=== PATIENT | male | born 1935 | race Caucasian/White ===

== ENCOUNTER → 2021-09-09 | Outpatient (CLI) | payer MEDICARE ==
[~2021-09-09] MED LIST: Aspir 8181 MG PO; CEPH500 PO; ESOM20 PO; HYDACE5 PO; LISI20 PO; RXCEPH500 PO; RXHYDACE PO; TERB250; WARF4 PO
== END | disposition home or self-care (01) ==
LOC: LAB SHORT 19:06
DX: Z08 Encounter for follow-up examination after completed treatment for malignant neoplasm (principal); L08.9 Local infection of the skin and subcutaneous tissue, unspecified; D18.01 Hemangioma of skin and subcutaneous tissue; L81.4 Other melanin hyperpigmentation; L82.1 Other seborrheic keratosis; L57.8 Other skin changes due to chronic exposure to nonionizing radiation; Z85.828 Personal history of other malignant neoplasm of skin; R60.0 Localized edema
CPT/HCPCS: 87070; 87205

== ENCOUNTER → 2022-07-20 | Outpatient (CLI) | payer MEDICARE | END | disposition home or self-care (01) | LOC: LAB SHORT 13:17 | DX: L08.9 Local infection of the skin and subcutaneous tissue, unspecified (principal) | CPT/HCPCS: 87070; 87077; 87186; 87205 ==

== ENCOUNTER 2022-10-17 10:49 | Emergency (ER) | payer MEDICARE ==
[~2022-10-17] VITALS: Ht 198.1 cm; Wt 104.3 kg
[2022-10-17] MEDS ORDERED: CEPH500 PO (13:41)
[2022-10-17] MEDS ORDERED: HYDR1TAB94 PO (13:41)
== END 2022-10-17 13:49 | disposition home or self-care (01) ==
LOC: ER 10:49
DX: S61.213A Laceration without foreign body of left middle finger without damage to nail, initial encounter (principal); W18.30XA Fall on same level, unspecified, initial encounter; I10 Essential (primary) hypertension; Z79.899 Other long term (current) drug therapy; Z79.82 Long term (current) use of aspirin; Z87.891 Personal history of nicotine dependence
CPT/HCPCS: 73140; 90714

== ENCOUNTER → 2022-11-09 | Outpatient (CLI) | payer MEDICARE ==
[~2022-11-09] MED LIST changes: +HYDR1TAB94 PO
== END | disposition home or self-care (01) ==
LOC: LAB SHORT 10:10
DX: L08.9 Local infection of the skin and subcutaneous tissue, unspecified (principal)
CPT/HCPCS: 87070; 87077; 87186; 87205